=== PATIENT | female | born 2000 | race Caucasian/White ===

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

== ENCOUNTER → 2019-01-15 | Outpatient (CLI) | payer OTHER | END | disposition home or self-care (01) | LOC: PMG 11:37 | PROVIDERS: ATTEND Registered Nurse | DX: N91.2 Amenorrhea, unspecified (principal) | CPT/HCPCS: 36415; 84702 ==

== ENCOUNTER → 2019-01-29 | Outpatient (CLI) | payer OTHER ==
--- NOTE | 2019-01-29 17:33 | RAD ---
Examination: OB <14 WKS W/TV History: UNSURE OF DATES Comparison/Correlation: None Findings: Transabdominal and transvaginal OB ultrasound exam was performed. Transvaginal technique was utilized to better assess intrauterine contents and adnexal structures. Uterus measures 11.2 cm x 7.4 cm x 6 cm. Cervical length is 4.3 cm. Intrauterine gestational sac has a diameter 1.3 cm corresponding to 6 weeks 1 day. pole is present measuring 0.4 cm corresponding to 6 weeks 1 day gestation. Sonographic EDC is 09/23/2019. heart rate is 111 bpm. Right ovary measures 2.8 cm x 1.6 cm x 2.7 cm. Left ovary measures 2.8 cm x 2.2 cm x 3.5 cm. Left adnexal mass measuring 2.7 cm x 2 cm x 3.1 cm with a cystic component measuring up to 1.4 cm diameter is present. Impression: Single living intrauterine gestation is present corresponding to 6 weeks 1 day gestation. No subchorionic hemorrhage. Right adnexal mass with a cystic component is evident. This finding is not typical for a hemorrhagic corpus luteum cyst. Correlate for possibility of heterotopic gestation, atypical physiologic cyst, or neoplastic process. Continued follow-up or other assessment recommended. Electronically signed by: Dioni Freitas MD (01/29/2019 5:30 PM) [facility]
== END | disposition home or self-care (01) ==
LOC: US 14:32
PROVIDERS: ATTEND Registered Nurse
DX: O34.81 Maternal care for other abnormalities of pelvic organs, first trimester (principal); N94.89 Other specified conditions associated with female genital organs and menstrual cycle; Z3A.01 Less than 8 weeks gestation of pregnancy
CPT/HCPCS: 76801; 76817